=== PATIENT | male | born 1960 | race Caucasian/White ===

== ENCOUNTER 2016-03-23 03:40 | Emergency (ER) | payer MEDICAID ==
[~2016-03-23] VITALS: Ht 182.9 cm; Wt 113.4 kg
[2016-03-23 03:40] VITALS: BP 169/93; PULSE 102; RESP 16; TEMP 98; O2SAT 100
--- NOTE | 2016-03-23 03:40 | NUR ---
Patient to ER bed 6 to gown for evaluation. Side rails up.
--- NOTE | 2016-03-23 03:45 | NUR ---
Pt in bed 6 with c/o anxiety, and swelling to extremities also has hx of Cirrosis. Dr Ferrari aware.
--- NOTE | 2016-03-23 04:10 | NUR ---
ER at bedside examining patient.
--- NOTE | 2016-03-23 04:39 | NUR ---
Portable x-ray in progress.
--- NOTE | 2016-03-23 05:00 | NUR ---
Patient resting quietly. No acute distress noted. Vital signs within normal range.
[2016-03-23 05:43] LABS: BASOPHILS # (AUTO) 0.1 K/uL (0.0-0.2); BASOPHILS % (AUTO) 1.4 % (0.0-2.0); EOSINOPHILS % (AUTO) 0.1 % (0.0-4.0); HEMATOCRIT 28.5 % (36-54); LYMPHOCYTES # (AUTO) 0.7 K/uL (1.0-5.5); LYMPHOCYTES % (AUTO) 7.5 % (20.5-51.5); MEAN CORPUSCULAR HEMOGLOBIN 27 pg (27-31); MEAN CORPUSCULAR HGB CONC 32 % (32-36); MEAN CORPUSCULAR VOLUME 85 fL (79.0-98.0); MONOCYTES # (AUTO) 0.7 K/uL (0.0-1.0); MONOCYTES % (AUTO) 7.7 % (1.7-9.3); NEUTROPHILS # (AUTO) 7.8 K/uL (1.8-7.7); NEUTROPHILS % (AUTO) 83.3 % (40.0-70.0); PLATELET COUNT (AUTO) 339 K/uL (130-430); RED BLOOD CELL COUNT(AUTO) 3.35 MIL/uL (4.2-6.2); RED CELL DISTRIBUTION WIDTH 22.9 % (9.0-15.0); WHITE BLOOD COUNT (AUTO) 9.3 K/uL (4.8-10.8)
[2016-03-23 06:00] LABS: CREATININE 2.85 mg/dL (0.55-1.30); POTASSIUM 3.8 mmol/L (3.5-5.1)
--- NOTE | 2016-03-23 06:00 | NUR ---
ER at bedside examining patient.
[2016-03-23 06:05] LABS: ALBUMIN 1.8 g/dL (3.4-4.8); TOTAL BILIRUBIN 0.6 mg/dL (0.0-1.0); TOTAL PROTEIN, SERUM 6.1 g/dL (6.4-8.3)
[2016-03-23 06:18] LABS: INR 1.1 (0.80-1.20); PROTHROMBIN TIME 11.7 SECS (9.5-12.5)
--- NOTE | 2016-03-23 07:10 | NUR ---
Assumed care, pt AAO x 4 no acute distress noted.
--- NOTE | 2016-03-23 07:55 | NUR ---
[facility] at bedside for Transport.
--- NOTE | 2016-03-23 08:10 | NUR ---
Pt requesting diaper change. Pt informed that he could be cleaned, however ther would be no replacement diaper given. Pt declined cleaning at this time opting to wait for return to facility.
--- NOTE | 2016-03-23 08:17 | NUR ---
Report given to Toyin at [facility]'
--- NOTE | 2016-03-23 08:19 | NUR ---
Patient given written and verbal discharge instructions and verbalizes understanding. ER MD discussed with patient the results and treatment provided. Given copies of tests performed in ER. Patient in stable condition. ID arm band removed. Patient educated on pain management and to follow up with PMD. Pain Scale 0. Opportunity for questions provided and answered.
[2016-03-23 08:31] VITALS: BP 162/90; PULSE 90; RESP 16; TEMP 97.8; O2SAT 100
== END 2016-03-23 08:31 | disposition home or self-care (01) ==
LOC: SED 03:40
DX: F41.9 Anxiety disorder, unspecified (principal); I13.2 Hypertensive heart and chronic kidney disease with heart failure and with stage 5 chronic kidney disease, or end stage renal disease; N18.6 End stage renal disease; I50.9 Heart failure, unspecified; E11.9 Type 2 diabetes mellitus without complications; K74.60 Unspecified cirrhosis of liver; Z99.2 Dependence on renal dialysis
CPT/HCPCS: 36415; 71010; 80053; 83880; 84484; 85025; 85610-TC; 85730-TC; 93005; 99285

== ENCOUNTER 2016-03-27 20:29 | Inpatient (IN) | payer MEDICAID ==
[~2016-03-27] VITALS: Ht 182.9 cm; Wt 91.6 kg
[2016-03-27 20:33] VITALS: BP 137/75; PULSE 89; RESP 20; TEMP 98.7; O2SAT 99
[2016-03-27 21:51] LABS: BASOPHILS % (AUTO) 0.1 % (0.0-2.0); HEMATOCRIT 29.1 % (36-54); HEMOGLOBIN 9.4 g/dL (14.0-18.0); LYMPHOCYTES # (AUTO) 0.7 K/uL (1.0-5.5); LYMPHOCYTES % (AUTO) 6.2 % (20.5-51.5); MEAN CORPUSCULAR HEMOGLOBIN 28 pg (27-31); MEAN CORPUSCULAR HGB CONC 32 % (32-36); MEAN CORPUSCULAR VOLUME 86 fL (79.0-98.0); MONOCYTES # (AUTO) 0.9 K/uL (0.0-1.0); MONOCYTES % (AUTO) 7.4 % (1.7-9.3); NEUTROPHILS # (AUTO) 10.1 K/uL (1.8-7.7); NEUTROPHILS % (AUTO) 86.3 % (40.0-70.0); PLATELET COUNT (AUTO) 323 K/uL (130-430); RED BLOOD CELL COUNT(AUTO) 3.39 MIL/uL (4.2-6.2); RED CELL DISTRIBUTION WIDTH 21.6 % (9.0-15.0); WHITE BLOOD COUNT (AUTO) 11.7 K/uL (4.8-10.8)
[2016-03-27 21:56] LABS: CALCIUM 9.1 mg/dL (8.4-11.0); CREATININE 1.89 mg/dL (0.55-1.30); POTASSIUM 3.7 mmol/L (3.5-5.1)
[2016-03-27 21:57] LABS: INR 1.2 (0.80-1.20); PROTHROMBIN TIME 12.6 SECS (9.5-12.5)
[2016-03-27 22:01] LABS: ALBUMIN 1.9 g/dL (3.4-4.8); TOTAL BILIRUBIN 0.7 mg/dL (0.0-1.0)
[2016-03-27] MEDS ORDERED: IPRATROPIUM/ALBUTEROL SULFATE 3 ML AMPUL.NEB INH ONE (23:45)
[2016-03-28] VITALS (26 sets, daily range): BP systolic 76–177; BP diastolic 41–92; PULSE 63–120; RESP 16–22; TEMP 96.9–98.9; O2SAT 92–100
[2016-03-28] MEDS ORDERED: POTASSIUM CHLORIDE 20 MEQ TAB.PRT.SR PO PRN
[2016-03-28] MEDS ORDERED: DOCUSATE SODIUM 100 MG CAPSULE PO PRN
[2016-03-28] MEDS ORDERED: ACETAMINOPHEN 325 MG TABLET PO PRN
[2016-03-28] MEDS ORDERED: ONDANSETRON HCL 4 MG/2 ML VIAL IVP PRN
[2016-03-28] MEDS ORDERED: LORazepam 2 MG/ML VIAL IVP PRN
[2016-03-28] MEDS ORDERED: MAGNESIUM SULFATE 50 ML IV PRN
[2016-03-28] MEDS ORDERED: ZOLPIDEM TARTRATE 5 MG TABLET PO PRN
[2016-03-28] MEDS ORDERED: MORPHINE 2 MG/ML INJ. SYRINGE IVP PRN
[2016-03-28] MEDS ORDERED: BUDESONIDE 0.5 MG/2 ML AMPUL.NEB INH SCH (07:00)
[2016-03-28] MEDS: IPRATROPIUM/ALBUTEROL SULFATE 3 ML AMPUL.NEB INH SCH ×3 (07:49→19:43)
[2016-03-28 08:46] LABS: BASOPHILS # (AUTO) 0.2 K/uL (0.0-0.2); BASOPHILS % (AUTO) 1.5 % (0.0-2.0); HEMATOCRIT 27.7 % (36-54); HEMOGLOBIN 8.8 g/dL (14.0-18.0); LYMPHOCYTES # (AUTO) 0.6 K/uL (1.0-5.5); LYMPHOCYTES % (AUTO) 4.4 % (20.5-51.5); MEAN CORPUSCULAR HEMOGLOBIN 27 pg (27-31); MEAN CORPUSCULAR HGB CONC 32 % (32-36); MEAN CORPUSCULAR VOLUME 86 fL (79.0-98.0); MONOCYTES # (AUTO) 0.9 K/uL (0.0-1.0); MONOCYTES % (AUTO) 6.6 % (1.7-9.3); NEUTROPHILS # (AUTO) 12.4 K/uL (1.8-7.7); NEUTROPHILS % (AUTO) 87.5 % (40.0-70.0); PLATELET COUNT (AUTO) 346 K/uL (130-430); RED BLOOD CELL COUNT(AUTO) 3.22 MIL/uL (4.2-6.2); RED CELL DISTRIBUTION WIDTH 21.7 % (9.0-15.0); WHITE BLOOD COUNT (AUTO) 14.1 K/uL (4.8-10.8)
[2016-03-28 08:52] LABS: CREATININE 1.98 mg/dL (0.55-1.30); POTASSIUM 4.2 mmol/L (3.5-5.1)
[2016-03-28] MEDS ORDERED: HEPARIN SODIUM,PORCINE 5000 UNITS/ML VIAL SUBCUT SCH (09:00)
[2016-03-28] MEDS ORDERED: INSULIN ASPART 100 UNITS/ML, 10 ML VIAL (NovoLOG) SUBCUT PRN (09:15)
[2016-03-28] MEDS ORDERED: FLUMAZENIL 0.1 MG/ML IVP ONE ×2 (09:15→10:00)
[2016-03-28] MEDS ORDERED: DEXTROSE 50% JECT 50 ML DISP.SYRIN IVP PRN (09:15)
[2016-03-28] MEDS ORDERED: ETOMIDATE 20 MG/ 10 ML VIAL (AMIDATE) IVP ONE (09:15)
[2016-03-28] MEDS ORDERED: ROCURONIUM BROMIDE 10 MG/ML (ZEMURON) IV ONE (09:15)
[2016-03-28 09:20] LABS: BLOOD GAS PH 7.345 (7.350-7.450)
[2016-03-28 09:21] LABS: ABG TOTAL HEMOGLOBIN 10.5 G/dL (12.0-18.0); BLOOD GAS BASE EXCESS 1.4 mmol/L (-3.0-3.0); BLOOD GAS COHb% 1.2 % (0.5-1.5); BLOOD GAS HHB 4.3 % (0.0-6.0); BLOOD O2Hb% 94.2 % (94.0-97.0)
[2016-03-28] MEDS ORDERED: ROCURONIUM BROMIDE 10 MG/ML (ZEMURON) ONE (10:00)
[2016-03-28] MEDS ORDERED: ETOMIDATE 20 MG/ 10 ML VIAL (AMIDATE) ONE (10:00)
[2016-03-28 10:36] LABS: ABG TOTAL HEMOGLOBIN 9.7 G/dL (12.0-18.0); BLOOD GAS BASE EXCESS 2.2 mmol/L (-3.0-3.0); BLOOD GAS COHb% 0.2 % (0.5-1.5); BLOOD GAS PH 7.514 (7.350-7.450); BLOOD O2Hb% 98.5 % (94.0-97.0)
[2016-03-28] MEDS ORDERED: LORazepam 2 MG/ML VIAL ONE (10:52)
[2016-03-28] MEDS: LORazepam 2 MG/ML VIAL IVP PRN ×2 (11:02→17:32)
[2016-03-28] MEDS ORDERED: *HEPARIN PER PHARMACY XX ONE (11:15)
[2016-03-28] MEDS: PIPERACILLIN/TAZO 2.25G/DEX-IS 50 ML IV SCH ×3 (12:25→23:16)
[2016-03-28] MEDS ORDERED: HEPARIN SODIUM,PORCINE 5000 UNITS/ML VIAL IV ONE (14:00)
[2016-03-28] MEDS: HEPARIN 25,000 UNITS in 250 ML PREMIX IV PRN (16:56)
[2016-03-28] MEDS: VANCOMYCIN HCL 1,500 MG in NS 250 ML IV SCH (16:57)
[2016-03-28] MEDS: HEPARIN SODIUM,PORCINE 3000 UNITS/0.6 ML BOLUS IVP PRN (17:15)
[2016-03-28] MEDS ORDERED: NOREPINEPHRINE 4 MG/4 ML VIAL IV ONE (17:24)
[2016-03-28] MEDS ORDERED: NOREPINEPHRINE BITARTRATE 4 MG in D5W 246 ML IV PRN (18:00)
[2016-03-28] MEDS: MORPHINE 2 MG/ML INJ. SYRINGE IVP PRN (18:57)
[2016-03-29] VITALS (25 sets, daily range): BP systolic 106–132; BP diastolic 7–71; PULSE 89–104; RESP 16–20; TEMP 97.5–98.2; O2SAT 96–100
[2016-03-29] MEDS: HEPARIN SODIUM,PORCINE 3000 UNITS/0.6 ML BOLUS IVP PRN ×2 (00:21→21:51)
[2016-03-29] MEDS: LORazepam 2 MG/ML VIAL IVP PRN (01:06)
[2016-03-29] MEDS: IPRATROPIUM/ALBUTEROL SULFATE 3 ML AMPUL.NEB INH SCH ×4 (01:11→19:36)
[2016-03-29 04:48] LABS: BLOOD, URINE 3+ (NEGATIVE); CLARITY/URINE CLOUDY (CLEAR); COLOR,URINE YELLOW (YELLOW); GLUCOSE,URINE NEGATIVE (NEGATIVE); KETONES,URINE TRACE (NEGATIVE); LEUKOCYTE ESTERASE ,URINE TRACE (NEGATIVE); NITRITE, URINE NEGATIVE (NEGATIVE); PROTEIN URINE 3+ (NEGATIVE); UROBILINOGEN,URINE 0.2 (0.2-1.0)
[2016-03-29 05:05] LABS: BILIRUBIN,URINE NEGATIVE (NEGATIVE)
[2016-03-29 05:16] LABS: RBC,URINE >100 /HPF (0-3)
[2016-03-29 05:17] LABS: BACTERIA,URINE FEW /HPF (None Seen); MUCUS,URINE None Seen /LPF (None Seen); WBC,URINE 0-3 /HPF (0-3)
[2016-03-29] MEDS: PIPERACILLIN/TAZO 2.25G/DEX-IS 50 ML IV SCH ×3 (06:38→17:31)
[2016-03-29 06:56] LABS: CALCIUM 8.3 mg/dL (8.4-11.0); CREATININE 1.82 mg/dL (0.55-1.30); POTASSIUM 3.1 mmol/L (3.5-5.1)
[2016-03-29 07:43] LABS: BASOPHILS % (AUTO) 0.3 % (0.0-2.0); HEMATOCRIT 22.8 % (36-54); HEMOGLOBIN 7.5 g/dL (14.0-18.0); LYMPHOCYTES # (AUTO) 0.7 K/uL (1.0-5.5); LYMPHOCYTES % (AUTO) 7.7 % (20.5-51.5); MEAN CORPUSCULAR HEMOGLOBIN 28 pg (27-31); MEAN CORPUSCULAR HGB CONC 33 % (32-36); MEAN CORPUSCULAR VOLUME 85 fL (79.0-98.0); MONOCYTES # (AUTO) 0.9 K/uL (0.0-1.0); MONOCYTES % (AUTO) 9.6 % (1.7-9.3); NEUTROPHILS # (AUTO) 7.9 K/uL (1.8-7.7); NEUTROPHILS % (AUTO) 82.4 % (40.0-70.0); PLATELET COUNT (AUTO) 231 K/uL (130-430); RED BLOOD CELL COUNT(AUTO) 2.67 MIL/uL (4.2-6.2); RED CELL DISTRIBUTION WIDTH 21.8 % (9.0-15.0); WHITE BLOOD COUNT (AUTO) 9.5 K/uL (4.8-10.8)
[2016-03-29 07:59] LABS: ABG TOTAL HEMOGLOBIN 7.5 G/dL (12.0-18.0); BLOOD GAS BASE EXCESS 5.7 mmol/L (-3.0-3.0); BLOOD GAS PH 7.559 (7.350-7.450)
[2016-03-29 08:00] LABS: BLOOD GAS COHb% 1.1 % (0.5-1.5); BLOOD GAS HHB 2.2 % (0.0-6.0); BLOOD O2Hb% 95.9 % (94.0-97.0)
[2016-03-29] MEDS: FUROSEMIDE 40 MG/4 ML VIAL IVP SCH (08:25)
[2016-03-29] MEDS ORDERED: POTASSIUM CHLORIDE 40 MEQ, LIDOCAINE JECT 2% PF 100 MG 50 MG in NS 250 ML IV ONE (08:45)
[2016-03-29] MEDS: VANCOMYCIN HCL 1,500 MG in NS 250 ML IV SCH (14:36)
[2016-03-29] MEDS: LACTOBACILLUS RHAMNOSUS GG 1 CAP CAPSULE PO SCH (21:56)
[2016-03-29] MEDS: MORPHINE 2 MG/ML INJ. SYRINGE IVP PRN (21:57)
[2016-03-30] MEDS: PIPERACILLIN/TAZO 2.25G/DEX-IS 50 ML IV SCH ×5 (00:28→23:25)
[2016-03-30] MEDS: LORazepam 2 MG/ML VIAL IVP PRN ×2 (00:28→20:30)
[2016-03-30] MEDS: IPRATROPIUM/ALBUTEROL SULFATE 3 ML AMPUL.NEB INH SCH ×4 (00:53→19:51)
[2016-03-30 00:57] VITALS: BP 137/69; PULSE 69; RESP 19; TEMP 97.6; O2SAT 95
[2016-03-30 04:00] VITALS: BP 138/72; PULSE 71; RESP 19; TEMP 97.7; O2SAT 96
[2016-03-30 06:52] LABS: CALCIUM 8.5 mg/dL (8.4-11.0); CREATININE 2.23 mg/dL (0.55-1.30); POTASSIUM 3.2 mmol/L (3.5-5.1)
[2016-03-30] MEDS: HEPARIN SODIUM,PORCINE 3000 UNITS/0.6 ML BOLUS IVP PRN ×2 (06:56→17:33)
[2016-03-30 07:12] LABS: BASOPHILS # (AUTO) 0.1 K/uL (0.0-0.2); BASOPHILS % (AUTO) 0.6 % (0.0-2.0); HEMATOCRIT 23.8 % (36-54); HEMOGLOBIN 7.6 g/dL (14.0-18.0); LYMPHOCYTES # (AUTO) 0.6 K/uL (1.0-5.5); LYMPHOCYTES % (AUTO) 5.2 % (20.5-51.5); MEAN CORPUSCULAR HEMOGLOBIN 28 pg (27-31); MEAN CORPUSCULAR HGB CONC 32 % (32-36); MEAN CORPUSCULAR VOLUME 87 fL (79.0-98.0); MONOCYTES # (AUTO) 1.2 K/uL (0.0-1.0); MONOCYTES % (AUTO) 9.9 % (1.7-9.3); NEUTROPHILS # (AUTO) 10.5 K/uL (1.8-7.7); NEUTROPHILS % (AUTO) 84.3 % (40.0-70.0); PLATELET COUNT (AUTO) 245 K/uL (130-430); RED BLOOD CELL COUNT(AUTO) 2.74 MIL/uL (4.2-6.2); RED CELL DISTRIBUTION WIDTH 21.3 % (9.0-15.0); WHITE BLOOD COUNT (AUTO) 12.4 K/uL (4.8-10.8)
[2016-03-30 08:00] VITALS: BP 131/79; PULSE 104; RESP 19; TEMP 99.2; O2SAT 95
[2016-03-30] MEDS: LACTOBACILLUS RHAMNOSUS GG 1 CAP CAPSULE PO SCH ×2 (08:52→20:29)
[2016-03-30] MEDS: FUROSEMIDE 40 MG/4 ML VIAL IVP SCH (08:53)
[2016-03-30 11:54] VITALS: Ht 182.9 cm; Wt 91.6 kg
[2016-03-30 11:57] VITALS: BP_SYST 142; BP_SYST 147; BP_DIAS 71; BP_DIAS 72; PULSE 100; PULSE 53; RESP 22; RESP 24; TEMP 99; TEMP 99.1; O2SAT 95; O2SAT 98
[2016-03-30] MEDS: VANCOMYCIN HCL 1,500 MG in NS 250 ML IV SCH (14:31)
[2016-03-30 16:02] VITALS: BP 142/72; PULSE 100; RESP 24; TEMP 99; O2SAT 95
[2016-03-30] MEDS: HEPARIN 25,000 UNITS in 250 ML PREMIX IV PRN (17:34)
[2016-03-30 19:52] VITALS: BP 149/79; PULSE 102; RESP 18; TEMP 98.2; O2SAT 93
[2016-03-31] VITALS (7 sets, daily range): BP systolic 106–138; BP diastolic 67–80; PULSE 95–114; RESP 16–22; TEMP 97.4–98.3; O2SAT 91–100
[2016-03-31] MEDS: HEPARIN SODIUM,PORCINE 3000 UNITS/0.6 ML BOLUS IVP PRN ×2 (00:28→09:38)
[2016-03-31] MEDS: IPRATROPIUM/ALBUTEROL SULFATE 3 ML AMPUL.NEB INH SCH ×4 (01:01→19:47)
[2016-03-31] MEDS: PIPERACILLIN/TAZO 2.25G/DEX-IS 50 ML IV SCH ×3 (05:45→17:51)
[2016-03-31 07:56] LABS: HEMATOCRIT 24.8 % (36-54); HEMOGLOBIN 8.2 g/dL (14.0-18.0); MEAN CORPUSCULAR HEMOGLOBIN 28 pg (27-31); MEAN CORPUSCULAR HGB CONC 33 % (32-36); MEAN CORPUSCULAR VOLUME 86 fL (79.0-98.0); PLATELET COUNT (AUTO) 248 K/uL (130-430); RED BLOOD CELL COUNT(AUTO) 2.88 MIL/uL (4.2-6.2); RED CELL DISTRIBUTION WIDTH 20.6 % (9.0-15.0)
[2016-03-31 07:59] LABS: WHITE BLOOD COUNT (AUTO) 15.5 K/uL (4.8-10.8)
[2016-03-31 08:18] LABS: CALCIUM 8.8 mg/dL (8.4-11.0); CREATININE 2.36 mg/dL (0.55-1.30); POTASSIUM 3.7 mmol/L (3.5-5.1)
[2016-03-31 09:20] LABS: ATYPICAL LYMPHOCYTES % 0 % (0-0); BAND % (MANUAL) 0 % (0-6); BASOPHILS % (MANUAL) 0 % (0-2); EOSINOPHILS % (MANUAL) 0 % (0-7); LYMPHOCYTES % (MANUAL) 4 % (20-46); MONOCYTES % (MANUAL) 8 % (0-11)
[2016-03-31] MEDS: FUROSEMIDE 40 MG/4 ML VIAL IVP SCH (09:27)
[2016-03-31] MEDS: LACTOBACILLUS RHAMNOSUS GG 1 CAP CAPSULE PO SCH ×2 (09:27→20:36)
[2016-03-31] MEDS: HEPARIN 25,000 UNITS in 250 ML PREMIX IV PRN ×3 (09:38→16:44)
[2016-03-31] MEDS ORDERED: IPRATROPIUM/ALBUTEROL SULFATE 3 ML AMPUL.NEB INH PRN (11:30)
[2016-03-31] MEDS ORDERED: PHENOL/MENTHOL 14.5 MG LOZENGE MM ONE (15:15)
[2016-03-31] MEDS: VANCOMYCIN HCL 1,500 MG in NS 250 ML IV SCH (15:24)
[2016-03-31] MEDS: HEPARIN SODIUM,PORCINE 2000 UNITS/0.4 ML BOLUS IVP PRN (16:46)
[2016-04-01 00:05] VITALS: BP 134/75; PULSE 104; RESP 18; TEMP 97.8; O2SAT 91
[2016-04-01] MEDS: HEPARIN SODIUM,PORCINE 2000 UNITS/0.4 ML BOLUS IVP PRN ×2 (00:07→08:29)
[2016-04-01] MEDS: HEPARIN 25,000 UNITS in 250 ML PREMIX IV PRN ×2 (00:10→07:00)
[2016-04-01] MEDS: PIPERACILLIN/TAZO 2.25G/DEX-IS 50 ML IV SCH ×4 (00:29→18:07)
[2016-04-01] MEDS: IPRATROPIUM/ALBUTEROL SULFATE 3 ML AMPUL.NEB INH SCH ×4 (01:06→19:39)
[2016-04-01 03:51] VITALS: BP 126/71; PULSE 74; RESP 19; TEMP 97; O2SAT 94
[2016-04-01 07:21] LABS: CALCIUM 8.5 mg/dL (8.4-11.0); CREATININE 2.28 mg/dL (0.55-1.30); POTASSIUM 3.5 mmol/L (3.5-5.1)
[2016-04-01 07:27] LABS: BASOPHILS % (AUTO) 0.3 % (0.0-2.0); HEMOGLOBIN 7.4 g/dL (14.0-18.0); LYMPHOCYTES # (AUTO) 0.5 K/uL (1.0-5.5); LYMPHOCYTES % (AUTO) 3.8 % (20.5-51.5); MEAN CORPUSCULAR HEMOGLOBIN 28 pg (27-31); MEAN CORPUSCULAR HGB CONC 32 % (32-36); MEAN CORPUSCULAR VOLUME 87 fL (79.0-98.0); MONOCYTES # (AUTO) 0.8 K/uL (0.0-1.0); MONOCYTES % (AUTO) 6.3 % (1.7-9.3); NEUTROPHILS # (AUTO) 11.7 K/uL (1.8-7.7); NEUTROPHILS % (AUTO) 89.6 % (40.0-70.0); PLATELET COUNT (AUTO) 219 K/uL (130-430); RED BLOOD CELL COUNT(AUTO) 2.64 MIL/uL (4.2-6.2)
[2016-04-01 08:00] VITALS: BP 122/70; PULSE 102; RESP 24; TEMP 97.5; O2SAT 92
[2016-04-01] MEDS: FUROSEMIDE 40 MG/4 ML VIAL IVP SCH (08:15)
[2016-04-01] MEDS: LACTOBACILLUS RHAMNOSUS GG 1 CAP CAPSULE PO SCH ×2 (08:15→21:49)
[2016-04-01 11:39] LABS: BLOOD GAS PH 7.411 (7.350-7.450)
[2016-04-01 11:40] LABS: ABG TOTAL HEMOGLOBIN 9.2 G/dL (12.0-18.0); BLOOD GAS BASE EXCESS 1.4 mmol/L (-3.0-3.0); BLOOD GAS COHb% 1.2 % (0.5-1.5); BLOOD O2Hb% 92.2 % (94.0-97.0)
[2016-04-01 12:00] VITALS: BP 130/70; PULSE 71; RESP 24; TEMP 97.3; O2SAT 94
[2016-04-01] MEDS: VANCOMYCIN HCL 1,500 MG in NS 250 ML IV SCH (14:30)
[2016-04-01 16:18] VITALS: BP 117/77; PULSE 104; RESP 20; TEMP 97.2; O2SAT 96
[2016-04-01 20:10] VITALS: BP 99/63; PULSE 94; RESP 18; TEMP 96.9; O2SAT 97
[2016-04-02] MEDS: PIPERACILLIN/TAZO 2.25G/DEX-IS 50 ML IV SCH (00:05)
[2016-04-02 00:50] VITALS: BP 126/76; PULSE 96; RESP 22; TEMP 96.2; O2SAT 94
[2016-04-02] MEDS: IPRATROPIUM/ALBUTEROL SULFATE 3 ML AMPUL.NEB INH SCH (01:07)
== END 2016-04-02 02:06 | disposition expired | DRG 194 ==
LOC: SED 20:29 → STU 03-28 00:19 → SIC 03-28 09:26 → STU 03-29 20:03
PROVIDERS: ADMIT General Practice; ATTEND General Practice
PROC: 5A1935Z Respiratory Ventilation, Less than 24 Consecutive Hours (ICD-10-PCS; 2016-03-28)
PROC: 0BH17EZ Insertion of Endotracheal Airway into Trachea, Via Natural or Artificial Opening (ICD-10-PCS; 2016-03-28)
PROC: 5A1D60Z (ICD-10-PCS; 2016-03-28)
PROC: 0W993ZZ Drainage of Right Pleural Cavity, Percutaneous Approach (ICD-10-PCS; principal; 2016-03-29)
DX: I13.2 Hypertensive heart and chronic kidney disease with heart failure and with stage 5 chronic kidney disease, or end stage renal disease (principal); J96.00 Acute respiratory failure, unspecified whether with hypoxia or hypercapnia; E43 Unspecified severe protein-calorie malnutrition; N18.6 End stage renal disease; G82.20 Paraplegia, unspecified; I42.9 Cardiomyopathy, unspecified; C64.9 Malignant neoplasm of unspecified kidney, except renal pelvis; D64.9 Anemia, unspecified; I50.43 Acute on chronic combined systolic (congestive) and diastolic (congestive) heart failure; R18.8 Other ascites; L89.152 Pressure ulcer of sacral region, stage 2; E11.21 Type 2 diabetes mellitus with diabetic nephropathy; Z99.2 Dependence on renal dialysis; E11.22 Type 2 diabetes mellitus with diabetic chronic kidney disease; K74.60 Unspecified cirrhosis of liver; Z66 Do not resuscitate; Z51.5 Encounter for palliative care; Z74.01 Bed confinement status; Z85.528 Personal history of other malignant neoplasm of kidney; Z68.27 Body mass index [BMI] 27.0-27.9, adult; F41.9 Anxiety disorder, unspecified
CPT/HCPCS: 32555; 36415; 36600; 71010; 80048; 80053; 81000-TC; 82803-TC; 82962; 83735-TC; 83880; 83930-TC; 84484; 85007; 85025; 85027; 85610-TC; 85730-TC; 87040-TC; 87070-TC; 87081; 87205-TC; 88108; 88305; 90935; 90937; 93005; 93970; 94002; 94003; 94640; 94760; 99285; C1729; C1751; J1644; J1815; J1940; J2060; J2270; J2543; J3370; J3480; J3490; J7030; J7050; J7060